=== PATIENT | male | born 1980 | race Caucasian/White ===

== ENCOUNTER 2017-10-09 08:43 | Emergency (ER) | payer BC ==
[2017-10-09 08:47] VITALS: BP 142/78
--- NOTE | 2017-10-09 10:20 | UC ---
Dental HPI - HPI Summary HPI Summary: Patient presents with a past medical history of night time grinding, and he was seen at the dentist a few days ago and had his dental guard and has had notice increased pain of the left TMJ, and clicking sounds. He states that the pain is worse in the morning and get better through the day. He states he has no dental pain, swelling of the gums, or pain with chewing. He denies any fever, chills, dysphagia associated with his symptoms. He went to [facility] yesterday for the same symptoms and wanted a second opinion. - History of Current Complaint Chief Complaint: UCGeneralIllness Stated Complaint: EAR/JAW PAIN Time Seen by Provider: 10/09/17 10:06 Hx Obtained From: Patient Onset/Duration: Gradual Onset, Lasting Days Severity: Mild Aggravating Factor(s): Other - wakes in am with worse pain, movment of jaw. - Allergies/Home Medications Allergies/Adverse Reactions: Allergies Allergy/AdvReac Type Severity Reaction Status Date / Time enviromental Allergy Eyes Uncoded 10/09/17 08:47 Itchy/Swollen/Red/Watery Home Medications: Home Medications Lisinopril TAB* [Prinivil TAB 10 MG*] 10 mg PO DAILY 10/09/17 [History Confirmed 10/09/17] Sertraline* [Zoloft*] 50 mg PO DAILY 10/09/17 [History Confirmed 10/09/17] PMH/Surg Hx/FS Hx/Imm Hx Previously Healthy: Yes Other History Of: Negative For: HIV, Hepatitis B, Hepatitis C - Surgical History Surgical History: Yes Surgery Procedure, Year, and Place: colonoscopy - polyp removal, abscess behind front teeth, teeth removed, implants in place - Family History Known Family History: Positive: Unknown - He is adopted. - Social History Occupation: Employed Full-time Lives: Alone Alcohol Use: Weekly Substance Use Type: None Smoking Status (MU): Never Smoked Tobacco - Immunization History Most Recent Influenza Vaccination: season Review of Systems Constitutional: Negative Skin: Negative Eyes: Negative ENT: Other - pain over left TMJ joint. Respiratory: Negative Cardiovascular: Negative Gastrointestinal: Negative Genitourinary: Negative Motor: Negative Neurovascular: Negative Musculoskeletal: Negative Neurological: Negative Psychological: Negative Is Patient Immunocompromised?: No All Other Systems Reviewed And Are Negative: Yes Physical Exam Triage Information Reviewed: Yes Appearance: Well-Appearing Vital Signs: Initial Vital Signs Pulse 75 10/09/17 08:44 Resp 18 10/09/17 08:44 BP 142/78 10/09/17 08:44 Pulse Ox 100 10/09/17 08:44 Vital Signs Reviewed: Yes Eye Exam: Normal ENT: Positive: Other - tenderness to palpation of the left TMJ, with clicking noted on flexion and extension of jaw. Dentician in good repair with no redness , swelling of gum, no pain on palpaiton of teeth. Dental Exam: Normal Neck exam: Normal Neck: Positive: 1 Respiratory Exam: Normal Cardiovascular Exam: Normal Skin Exam: Normal Dental Complaint Course/Dx - Course Course Of Treatment: Patient present with pain of the left TMJ, following adjustments of his road crossing guard two days ago. He has no clinical signs of dental abscess. He denies any chest pain, dyspnea, sweating, nausea, HTN, CAD, or know hyperlipidemia. I do not feel that his symtpoms are cardiac related. I did recommend that the take advil and see if his symptoms improve, if for any reason they do not, and he develops any other symptoms he was told to follow up at once. He verbalzied understanding of and was in agreement with the discharge plan. - Differential Dx/Diagnosis Differential Diagnosis/Dx: Other - TMJ syndrome Provider Diagnoses: TMJ syndrome Discharge - Discharge Plan Condition: Stable Disposition: HOME Patient Education Materials: Temporomandibular Disorder (ED) Referrals: Sharita Morales MD [Primary Care Provider] -
== END 2017-10-09 10:19 | disposition home or self-care (01) ==
LOC: UCEAST 08:43
DX: M26.602 Left temporomandibular joint disorder, unspecified (principal); Z91.048 Other nonmedicinal substance allergy status
CPT/HCPCS: 99211; G0463

== ENCOUNTER 2017-12-25 07:27 | Emergency (ER) | payer BC ==
--- OUTSIDE RECORDS SUMMARY | 2017-12-25 07:33 | XMS REPORT ---
:1980 External Reference #:[id number] Author Organization [facility] Address [address] [place] [id number] Phone [phone] Care Team Providers Name Role Phone Sharita Morales MD FACP Care Team Information Manager Spa Unavailable Sharita Morales MD FACP Primary Care Physician Unavailable Payers Type Date Identification Numbers Payment Provider Subscriber Commercial Effective: Policy Number: [employer] Melissa Guzman 2012 [id number] PayID: [id number] [place] [id number] Problems Date Description Provider Status Onset: 11/30/2017 Essential hypertension Sharita Morales MD Active Onset: 10/29/2016 Impaired fasting glycaemia Sharita Morales MD Active Onset: 09/30/2016 Panic disorder with agoraphobia Sharita Morales MD Active Onset: 09/30/2016 Generalized anxiety disorder Sharita Morales MD Active Onset: 09/23/2016 Obesity Sharita Morales MD Active Family History Date Family Member(s) Problem(s) Comments General Adopted Social History Type Date Description Comments Marital Status 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 [employer] Use Consumed 3 Alcoholic Beverages Per Week Smoking Patient has never smoked Daily Caffeine Does Not Consume Caffeine Exercise Type/Frequency Exercises sporadically Currently Active Patient is currently sexually active Allergies, Adverse Reactions, Alerts Date Description Reaction Status Severity Comments 09/18/2016 NKDA active Medications Medication Date Status Form Strength Qnty SIG Indications Ordering Provider Lisinopril Active Tablets 10mg 30tabs take 1 I10 Sheriff A 017 tablet by MD Carmen mouth daily for high blood pressure Sertraline Active Tablets 50mg take 1 F41.1 BABAR Ontiveros 016 tablet by Melissa mouth daily MD George for Anxiety F40.01 Amoxicillin Hx Capsules 500mg 30caps 1 by mouth J03.90 Sheriff A 8 - three times a MD Carmen day 8 Meloxicam Hx Tablets 15mg 14tabs 1 by mouth S93.412A Sheriff A 7 - every day MD Carmen 7 M76.62 Diazepam 11/17/2016 - Hx Tablets 2mg 1 tablet by F41.1 Melissa Ontiveros 02/14/2017 mouth 2 times MD George per day for anxiety F40.01 Bisoprolol 09/30/2016 - Hx Tablets 5mg 30tabs take 1 tablet R00.2 Sheriff A Fumarate 04/13/2017 by mouth daily MD Carmen for palpitation and anxiety prevention I10 F41.1 Diazepam 07/18/2016 - Hx Tablets 10mg 5 mg pill twice F41.1 Melissa Ontiveros 11/17/2016 per day (Am and MD George PM) F40.01 Zofran 10/18/2014 - 10/29/2016 Hx Tablets 4mg 1 per day Chin Abdalla MD Immunizations CPT Code Status Date Vaccine Lot # [id number] Given 07/20/2017 Influenza Vaccine Quadrivalent Preser/Antibiotic [id number] Free Im Use 42556 Given 10/29/2016 Tdap-Tetanus, Diphtheria Toxoids/Acellular [id number] Pertussis Vaccine 7+ Vital Signs Date Vital Result Comment 11/30/2017 Body Temperature 98.7 F O2 % BldC Oximetry 96 % Heart Rate 68 /min BMI (Body Mass Index) 39.0 kg/m2 Weight 253.00 lb Height 67.50 inches 5'7.50" 11/16/2017 Body Temperature 98.9 F Heart Rate 70 /min BP Systolic 120 mmHg BP Diastolic 80 mmHg 10/20/2017 Body Temperature 100.4 F 07/20/2017 Heart Rate 76 /min BP Systolic 140 mmHg BP Diastolic 90 mmHg Weight 245.00 lb 05/11/2017 Heart Rate 68 /min BP Systolic 140 mmHg BP Diastolic 90 mmHg Weight 250.00 lb 03/16/2017 Heart Rate 62 /min BP Systolic 118 mmHg BP Diastolic 76 mmHg Weight 251.00 lb 02/10/2017 Heart Rate 76 /min BP Systolic 145 mmHg BP Diastolic 85 mmHg Weight 244.00 lb 10/29/2016 Heart Rate 82 /min BP Systolic 130 mmHg BP Diastolic 80 mmHg BMI (Body Mass Index) 36.6 kg/m2 Weight 234.00 lb Height 67 inches 5'7" 09/30/2016 Heart Rate 67 /min BP Systolic 130 mmHg BP Diastolic 80 mmHg 09/23/2016 O2 % BldC Oximetry 97 % Heart Rate 73 /min BP Systolic 140 mmHg Bilateral Ue BP Diastolic 80 mmHg Bilateral Ue BMI (Body Mass Index) 37.0 kg/m2 Weight 236.00 lb Height 67 inches 5'7" Results Test Date Test Result H/L Range Note CBC No Diff 11/27/2017 White Blood Count 7.0 10^3/uL 3.5-10.8 Red Blood Count 5.43 10^6/uL High 4.0-5.4 Hemoglobin 15.9 g/dL 14.0-18.0 Hematocrit 48 % 42-52 Mean Corpuscular Volume 88 fL 80-94 Mean Corpuscular Hemoglobin 29 pg 27-31 Mean Corpuscular HGB Conc 33 g/dL 31-36 Red Cell Distribution Width 14 % 10.5-15 Platelet Count 240 10^3/uL 150-450 Mean Platelet Volume 8 um3 7.4-10.4 Basic Metabolic Panel 11/27/2017 Sodium 137 mmol/L 133-145 Potassium 4.9 mmol/L 3.5-5.0 Chloride 103 mmol/L 101-111 Co2 Carbon Dioxide 29 mmol/L 22-32 Anion Gap 5 mmol/L 2-11 Glucose 103 mg/dL High 70-100 Blood Urea Nitrogen 28 mg/dL High 6-24 Creatinine 1.01 mg/dL 0.67-1.17 BUN/Creatinine Ratio 27.7 High 8-20 Calcium 10.0 mg/dL 8.6-10.3 Egfr Non- 82.2 >60 Egfr 105.8 >60 1 Laboratory test finding 11/27/2017 Hemoglobin A1c (Glyco HGB) 5.8 % High 4.0-5.6 2 Lipid Profile 11/27/2017 Triglycerides 94 mg/dL <150 3 (Trig/Chol/HDL) Cholesterol 153 mg/dL <200 4 HDL Cholesterol 51.6 mg/dL >40 5 LDL Cholesterol 83 mg/dL <130 6 Urinalysis Profile 11/27/2017 Urine Color Yellow Urine Appearance Turbid Urine Specific [place] 1.026 1.010-1.030 Urine pH 5.0 5-9 Urine Urobilinogen Negative Negative Urine Ketones Negative Negative Urine Protein Negative Negative Urine Leukocytes Negative Negative Urine Blood Negative Negative * * Negative 7 Urine Nitrite Negative Negative Urine Bilirubin Negative Negative Urine Glucose Negative Negative Laboratory test finding 02/22/2017 Glucose 98 mg/dL 70-100 Hemoglobin A1c (Glyco HGB) 5.4 % Less than 6.0 8 Basic Metabolic Panel 10/24/2016 Sodium 138 mmol/L 133-145 Potassium 4.3 mmol/L 3.5-5.0 Chloride 102 mmol/L 101-111 Co2 Carbon Dioxide 28 mmol/L 22-32 Anion Gap 8 mmol/L 2-11 Glucose 96 mg/dL 70-100 Blood Urea Nitrogen 23 mg/dL 6-24 Creatinine 1.06 mg/dL 0.67-1.17 BUN/Creatinine Ratio 21.7 High 8-20 Calcium 9.5 mg/dL 8.6-10.3 Egfr Non- 78.2 >60 Egfr 100.6 >60 9 Laboratory test finding 10/24/2016 Hemoglobin A1c (Glyco 6.2 % High Less than 6.0 10 HGB) Insulin Level 16.1 mcIU/mL 2.6 - 24.9 11 Lipid Profile (Trig/Chol/HDL) 10/24/2016 Triglycerides 103 mg/dL <150 12 Cholesterol 145 mg/dL <200 13 HDL Cholesterol 41.3 mg/dL >40 14 LDL Cholesterol 83 mg/dL <130 15 Basic Metabolic Panel 10/24/2016 Sodium 138 mmol/L 133-145 Potassium 4.3 mmol/L 3.5-5.0 Chloride 102 mmol/L 101-111 Co2 Carbon Dioxide 28 mmol/L 22-32 Anion Gap 8 mmol/L 2-11 Glucose 96 mg/dL 70-100 Blood Urea Nitrogen 23 mg/dL 6-24 Creatinine 1.06 mg/dL 0.67-1.17 BUN/Creatinine Ratio 21.7 High 8-20 Calcium 9.5 mg/dL 8.6-10.3 Egfr Non- 78.2 >60 Egfr 100.6 >60 16 Lipid Profile (Trig/Chol/HDL) 10/24/2016 Triglycerides 103 mg/dL 17 Cholesterol 145 mg/dL 18 HDL Cholesterol 41.3 mg/dL 19 LDL Cholesterol 83 mg/dL 20 Laboratory test finding 10/24/2016 Hemoglobin A1c (Glyco 6.2 % High Less than 6.0 21 HGB) Insulin Level 16.1 mcIU/mL 2.6 - 24.9 22 Order 10/02/2016 24 Hour Holter Monitor Benign Order 09/30/2016 EKG Normal 1 Because ethnic data is not always readily available, this report includes an eGFR for both -Americans and non- Americans. The National Kidney Disease Education Program (NKDEP) does not endorse the use of the MDRD equation for patients that are not between the ages of 18 and 70, are , have extremes of body size, muscle mass, or nutritional status, or are non- or non-. According to the National Kidney Foundation, irrespective of diagnosis, the stage of the disease is based on the level of kidney function: Stage Description GFR(mL/min/1.73 m(2)) 1 Kidney damage with normal or decreased GFR 90 2 Kidney damage with mild decrease in GFR 60-89 3 Moderate decrease in GFR 30-59 4 Severe decrease in GFR 15-29 5 Kidney failure <15 (or dialysis) 2 Therapeutic target for the treatment of diabetes mellitus patients is <7% HBA1C, and in selective patients <6.0%. Please refer to [place] Diabetes Association diabetic care guidelines for further information. 3 Desirable: <150 Borderline High: 150-199 High: 200-499 Very High: >500 4 Desirable: <200 Borderline High: 200-239 High: >239 5 Low: <40 Desirable: 40-60 High: >60 6 Desirable: <100 Near Optimal: 100-129 Borderline High: 130-159 High: 160-189 Very High: >189 7 *Ascorbic acid is present which may interfere with detection of blood. 8 Therapeutic target for the treatment of diabetes Mellitus patients is <7% HBA1C, and in selective patients <6.0%.Please refer to [employer] Diabetic care guidelines for further information. 9 Because ethnic data is not always readily available, this report includes an eGFR for both -Americans and non- Americans. The National Kidney Disease Education Program (NKDEP) does not endorse the use of the MDRD equation for patients that are not between the ages of 18 and 70, are , have extremes of body size, muscle mass, or nutritional status, or are non- or non-. According to the National Kidney Foundation, irrespective of diagnosis, the stage of the disease is based on the level of kidney function: Stage Description GFR(mL/min/1.73 m(2)) 1 Kidney damage with normal or decreased GFR 90 2 Kidney damage with mild decrease in GFR 60-89 3 Moderate decrease in GFR 30-59 4 Severe decrease in GFR 15-29 5 Kidney failure <15 (or dialysis) 10 Therapeutic target for the treatment of diabetes Mellitus patients is <7% HBA1C, and in selective patients <6.0%.Please refer to [place] [employer] Diabetic care guidelines for further information. 11 Test Performed by: [place] [address] Plastic Top Assembler: Lonnie Kelley II, M.D., Ph.D. 12 Desirable <150 Borderline high 150-199 High 200-499 Very High >500 13 Desirable <200 Borderline high 200-239 High >239 14 Low <40 Desirable: 40-60 High: >60 15 Desirable: <100 mg/dL Near Optimal: 100-129 mg/dL Borderline High: 130-159 mg/dL High: 160-189 mg/dL Very High: >189 mg/dL 16 Because ethnic data is not always readily available, this report includes an eGFR for both -Americans and non- Americans. The National Kidney Disease Education Program (NKDEP) does not endorse the use of the MDRD equation for patients that are not between the ages of 18 and 70, are , have extremes of body size, muscle mass, or nutritional status, or are non- or non-. According to the National Kidney Foundation, irrespective of diagnosis, the stage of the disease is based on the level of kidney function: Stage Description GFR(mL/min/1.73 m(2)) 1 Kidney damage with normal or decreased GFR 90 2 Kidney damage with mild decrease in GFR 60-89 3 Moderate decrease in GFR 30-59 4 Severe decrease in GFR 15-29 5 Kidney failure <15 (or dialysis) 17 Desirable <150 Borderline high 150-199 High 200-499 Very High >500 18 Desirable <200 Borderline high 200-239 High >239 19 Low <40 Desirable: 40-60 High: >60 20 Desirable: <100 mg/dL Near Optimal: 100-129 mg/dL Borderline High: 130-159 mg/dL High: 160-189 mg/dL Very High: >189 mg/dL 21 Therapeutic target for the treatment of diabetes Mellitus patients is <7% HBA1C, and in selective patients <6.0%.Please refer to [place] [employer] Diabetic care guidelines for further information. 22 Test Performed by: [place] [address] Plastic Top Assembler: Lonnie Kelley II, M.D., Ph.D. Procedures Date CPT Code Description Status 10/05/2016 51400 ECG Monitor/Report W/O Superimposition Scanning Completed 10/02/2016 42126 ECG Monitor/Report W/O Superimposition Scanning Completed 09/30/2016 29893 Electrocardiogram Complete Completed Encounters Type Date Location Provider CPT E/M Dx Office Visit 11/30/2017 11:20a [place] [address] Z00.01 R73.01 E66.09 I10 Office Visit 11/16/2017 12:40p [place] [address] B34.9 Office Visit 10/28/2017 2:40p [place] [address] B30.9 J03.90 Office Visit 10/20/2017 12:40p [place] [address] J03.90 Office Visit 07/20/2017 11:00a [place] [address] I10 E66.09 Z23 Office Visit 05/11/2017 11:40a [place] [address] I10 E66.09 Office Visit 03/16/2017 10:00a [place] [address] I10 R73.01 E66.09 Office Visit 02/10/2017 10:40a [place] [address] R73.01 I10 E66.09 Office Visit 12/01/2016 10:00a [place] [address] S93.412A M76.62 Office Visit 10/29/2016 10:40a [place] [address] Z00.01 R73.01 Z23 Office Visit 09/30/2016 1:20p [place] [address] R00.2 G47.33 R42 F41.1 F40.01 Office Visit 09/23/2016 2:20p [place] [address] I10 R73.9 R06.83 E66.09 Plan of Care 11/30/2017 - Sharita Morales MDZ00.01 Encounter for general adult medical exam w abnormal findingsComments:Age, sex and risk appropriate preventive care recommendations discussed with patient. Physical findings discussed in detail.Patient verbalized understanding. Lifestyle and dietary modifications advised for weight loss.R73.01 Impaired fasting eogfareD38.09 Other obesity due to excess [id number] Essential (primary) hypertensionComments:Clinically stable and asymptomatic. Medications related potential side effects, general precautions, follow up recommendations discussed with patient in detail. Patient verbalized understanding.AllFollow up:6M for HTN and IFG with labs.
[2017-12-25 08:26] VITALS: BP 136/81
--- NOTE | 2017-12-25 08:46 | UC ---
HPI BURN - HPI Summary HPI Summary: This 67-year-old man comes to the urgent care today with 2 days of nasal congestion low-grade fevers around 99 wants to be sure he doesn't need any further treatment seeking advice on how to manage symptoms they don't get worse while flying this week - History of Current Complaint Chief Complaint: UCRespiratory Stated Complaint: COUGH, HEADACHE Time Seen by Provider: 12/25/17 08:45 Hx Obtained From: Patient Hx From Patient Unobtainable Due To: Dementia Occurred: Days Ago - 2 Onset Severity: Mild Current Severity: Mild Pain Intensity: 3 Pain Scale Used: 0-10 Numeric - and Location: Other - Nasal congestion Aggravating Factor(s): Nothing Alleviating Factor(s): Nothing Associated Signs & Symptoms: Positive: Negative Occupational Injury: No - Allergy/Home Medications Allergies/Adverse Reactions: Allergies Allergy/AdvReac Type Severity Reaction Status Date / Time enviromental Allergy Eyes Uncoded 12/25/17 08:18 Itchy/Swollen/Red/Watery PMH/Surg Hx/FS Hx/Imm Hx Previously Healthy: No Cardiovascular History: Hypertension Psychological History: Depression Other History Of: Negative For: HIV, Hepatitis B, Hepatitis C - Surgical History Surgical History: Yes Surgery Procedure, Year, and Place: colonoscopy - polyp removal, abscess behind front teeth, teeth removed, implants in place - Family History Known Family History: Positive: Unknown - He is adopted. - Social History Occupation: Employed Full-time Lives: With Family Alcohol Use: Weekly Substance Use Type: None Smoking Status (MU): Never Smoked Tobacco - Immunization History Most Recent Influenza Vaccination: season Review of Systems Constitutional: Fever Skin: Negative Eyes: Negative ENT: Nasal Discharge Respiratory: Negative Cardiovascular: Negative Gastrointestinal: Negative Genitourinary: Negative Motor: Negative Neurovascular: Negative Musculoskeletal: Negative Neurological: Negative Psychological: Negative Is Patient Immunocompromised?: No All Other Systems Reviewed And Are Negative: Yes Physical Exam Triage Information Reviewed: Yes Appearance: Well-Appearing, No Pain Distress, Well-Nourished Vital Signs: Initial Vital Signs Temp 97.3 F 12/25/17 08:19 Pulse 70 12/25/17 08:19 Resp 16 12/25/17 08:19 BP 136/81 12/25/17 08:19 Pulse Ox 99 12/25/17 08:19 Vital Signs Reviewed: Yes Eye Exam: Normal ENT Exam: Other ENT: Positive: Nasal congestion, Nasal drainage Dental Exam: Normal Neck exam: Normal Neck: Positive: Supple, Nontender - The Respiratory Exam: Normal Respiratory: Positive: Chest non-tender, Lungs clear, Normal breath sounds, No respiratory distress, No accessory muscle use Cardiovascular Exam: Normal Cardiovascular: Positive: RRR, No Murmur, Pulses Normal, Brisk Capillary Refill Musculoskeletal Exam: Normal Musculoskeletal: Positive: Strength Intact, ROM Intact, No Edema Neurological Exam: Normal Neurological: Positive: Alert, Muscle Tone Normal Psychological Exam: Normal Skin Exam: Normal Burn Calculation - Nicolaus Formula for Fluid Resuscitation Weight: 113.398 kg 24 -Hour Fluid Replacement: 0.0 Course/Dx Burn - Course Course Of Treatment: Patient can use Sudafed for his nasal spray increase fluids Tylenol ibuprofen and follow with primary care when necessary - Diagnoses Clinic Provider Diagnoses: Acute rhinosinusitis Discharge - Discharge Plan Condition: Stable Disposition: HOME Patient Education Materials: Pseudoephedrine (By mouth), Fluticasone (Into the nose), Rhinosinusitis (ED) Referrals: Sharita Morales MD [Primary Care Provider] - If Needed
== END 2017-12-25 09:06 | disposition home or self-care (01) ==
LOC: UCEAST 07:27
DX: J01.90 Acute sinusitis, unspecified (principal); F32.9 Major depressive disorder, single episode, unspecified; I10 Essential (primary) hypertension; R50.9 Fever, unspecified
CPT/HCPCS: 87502; 99211; G0463

== ENCOUNTER 2019-05-19 07:15 | Emergency (ER) | payer BC ==
[2019-05-19 07:29] VITALS: BP 135/92
[2019-05-19] MEDS ORDERED: predniSONE TAB* 20 MG PO ONE (07:43)
[2019-05-19] MEDS ORDERED: LoraTADine TAB(NF) 10 MG TAB (AUTOSUB to CETIRIZINE) PO ONE (07:43)
--- NOTE | 2019-05-19 07:57 | UC ---
Skin Complaint HPI - HPI Summary HPI Summary: ONSET OF ITCHY RASH OVER THIGH, ARMS AND ABDOMEN YESTERDAY AFTER RECEIVING ACUPUNCTURE TREATMENT. RASH IS IN SAME DISTRIBUTION NEEDLE PLACEMENT. STATES HE HAS RECEIVED ACUPUNCTURE NUMEROUS TIMES IN THE PAST WITHOUT INCIDENT. NO RESPIRATORY INVOLVEMENT OR TONGUE/LIP SWELLING. NO NEW MEDS OR OTHER EXPOSURES. - History of Current Complaint Chief Complaint: UCRash Time Seen by Provider: 05/19/19 07:25 Stated Complaint: RASH Hx Obtained From: Patient Onset/Duration: Sudden Onset, Lasting Hours, Still Present Timing: Constant Onset Severity: Moderate Current Severity: Moderate Pain Intensity: 0 Pain Scale Used: 0-10 Numeric Character: Pruritus, Hives, Redness Aggravating Factor(s): Touch Alleviating Factor(s): Nothing Associated Signs & Symptoms: Positive: Rash - Allergy/Home Medications Allergies/Adverse Reactions: Allergies Allergy/AdvReac Type Severity Reaction Status Date / Time enviromental Allergy Eyes Uncoded 05/19/19 07:24 Itchy/Swollen/Red/Watery Home Medications: Home Medications Losartan TAB* [Cozaar TAB*] 25 mg PO DAILY 05/19/19 [History Confirmed 05/19/19] diPHENhydraMINE PO* [Benadryl PO 25 MG TAB*] 25 mg PO ONCE 05/19/19 [History Confirmed 05/19/19] PMH/Surg Hx/FS Hx/Imm Hx Cardiovascular History: Hypertension Other History Of: Negative For: HIV, Hepatitis B, Hepatitis C - Surgical History Surgical History: Yes Surgery Procedure, Year, and Place: colonoscopy - polyp removal, abscess behind front teeth, teeth removed, implants in place - Family History Known Family History: Positive: Unknown - He is adopted. - Social History Alcohol Use: None Substance Use Type: None Smoking Status (MU): Never Smoked Tobacco - Immunization History Most Recent Influenza Vaccination: season Review of Systems All Other Systems Reviewed And Are Negative: Yes Constitutional: Positive: Negative Skin: Positive: Rash Respiratory: Positive: Negative Cardiovascular: Positive: Negative Gastrointestinal: Positive: Negative Physical Exam Triage Information Reviewed: Yes Appearance: Well-Appearing, No Pain Distress, Well-Nourished Vital Signs: Initial Vital Signs Temp 97.3 F 05/19/19 07:24 Pulse 65 05/19/19 07:24 Resp 18 05/19/19 07:24 BP 135/92 05/19/19 07:24 Pulse Ox 98 05/19/19 07:24 Vital Signs Reviewed: Yes Eyes: Positive: Conjunctiva Clear ENT: Positive: Hearing grossly normal Neck: Positive: Supple Respiratory: Positive: No respiratory distress, No accessory muscle use Cardiovascular: Positive: Pulses Normal Abdomen Description: Positive: Soft Musculoskeletal: Positive: No Edema Neurological: Positive: Alert Psychological: Positive: Age Appropriate Behavior Skin: Positive: Rashes - SCATTERED ERYTHEMATOUS MACULAR RASH OVER UPPER THIGHS, ABDOMEN AND UPPER EXTREMITIES. NON TENDER. NO DRAINAGE OR VESICLES/BLISTERS Course/Dx - Course Course Of Treatment: RASH IS CONSISTENT WITH ALLERGIC RESPONSE. MAY OR MAY NOT BE DUE TO ACUPUNCTURE. WILL COVER WITH PREDNISONE AND TOPICAL TRIAMCINOLONE. ALSO ADVISED ANTIHISTAMINES. FOLLOW-UP IF NOT IMPROVING EXPECTED. - Diagnoses Provider Diagnosis: Allergic dermatitis Discharge - Sign-Out/Discharge Documenting (check all that apply): Patient Departure All imaging exams completed and their final reports reviewed: No Studies - Discharge Plan Condition: Stable Disposition: HOME Prescriptions: predniSONE TAB* [Deltasone TAB*] 50 mg PO DAILY #5 tab Triamcinolone 0.1% CREAM(NF) [Kenalog Cream 0.1%(NF)] 1 applic TOPICAL TID PRN # 1 tube PRN Reason: Itching Patient Education Materials: General Allergic Reaction (ED), Dermatitis (ED) Referrals: Sharita Morales MD [Primary Care Provider] - If Needed Additional Instructions: USE DAILY HYPOALLERGENIC MOISTURIZING LOTION TAKE PREDNISONE DAILY PRESCRIBED AVOID HEAT AND HOT WATER TAKE OTC ANTIHISTAMINE DAILY (CLARITIN (LORATADINE), ZYRTEC (CETIRIZINE) OR REED (FEXOFENADINE) IN THE MORNING, 25-50MG BENADRYL AT NIGHT) DO NOT SCRATCH KEEP COOL, CLEAN AND DRY USE TOPICAL STEROID SPARINGLY 2-3 TIMES DAILY ON ITCHY SPOTS. KEEP AWAY FROM MUCOUS MEMBRANES. GO TO THE ED WITHOUT FAIL IF YOU DEVELOP ANY RESPIRATORY INVOLVEMENT, TONGUE/ LIP SWELLING, FEVER, NAUSEA/VOMITING OR ANY OTHER CONCERNING SYMPTOMS. YOUR RASH MAY OR MAY NOT BE DUE TO THE ACUPUNCTURE THERAPY. IF YOU HAVE RECURRENT SYMPTOMS CONSIDER EVAL BY AN MAXILLOFACIAL PROSTHETICS DENTIST. [facility] Address: [facility] [address], [place] [address] [facility] [address] [place] [address] [address] [place], [place] [address] - Billing Disposition and Condition Condition: STABLE Disposition: Home
== END 2019-05-19 07:58 | disposition home or self-care (01) ==
LOC: UCEAST 07:15
DX: L23.9 Allergic contact dermatitis, unspecified cause (principal); I10 Essential (primary) hypertension
CPT/HCPCS: 99212; A9270-GY; G0463; J7512

== ENCOUNTER 2019-05-20 07:32 | Emergency (ER) | payer BC ==
[2019-05-20 07:42] VITALS: BP 104/68
--- NOTE | 2019-05-20 07:52 | UC ---
Skin Complaint HPI - HPI Summary HPI Summary: Seen here for hives yesterday returns because hives are worse didn't sleep due to itching took one 25 mg benadryl at bedtime no oral lesions no throat tightness no wheezing or SOB no new meds - History of Current Complaint Chief Complaint: UCRash Time Seen by Provider: 05/20/19 07:44 Stated Complaint: RECHECK OF HIVES Hx Obtained From: Patient Onset/Duration: Sudden Onset, Lasting Hours Timing: Constant Onset Severity: Mild Current Severity: Moderate Pain Intensity: 3 Pain Scale Used: 0-10 Numeric Location: Generalized - trunk and ext (abd and inner thighs the worse) Aggravating Factor(s): Nothing Alleviating Factor(s): Nothing Associated Signs & Symptoms: Positive: Rash. Negative: Nausea, Vomiting, Numbness, Thirst, Diaphoresis, Weakness, Pallor, Shivering, Difficulty Breathing , Fever, Chills, Cough, Wheezing, Chest Pain, Hoarseness, Throat Tightening, Abdominal Pain, Lightheadedness, Syncope, Drainage, Bruising, Tenderness, Red Streaks, Joint Swelling - Allergy/Home Medications Allergies/Adverse Reactions: Allergies Allergy/AdvReac Type Severity Reaction Status Date / Time enviromental Allergy Eyes Uncoded 05/20/19 07:42 Itchy/Swollen/Red/Watery PMH/Surg Hx/FS Hx/Imm Hx Previously Healthy: Yes Other History Of: Negative For: HIV, Hepatitis B, Hepatitis C - Surgical History Surgical History: Yes Surgery Procedure, Year, and Place: colonoscopy - polyp removal, abscess behind front teeth, teeth removed, implants in place - Family History Known Family History: Positive: Unknown - He is adopted. - Social History Alcohol Use: None Substance Use Type: None Smoking Status (MU): Never Smoked Tobacco - Immunization History Most Recent Influenza Vaccination: season Review of Systems All Other Systems Reviewed And Are Negative: Yes Constitutional: Positive: Negative Skin: Positive: Rash Eyes: Positive: Negative, Diplopia Respiratory: Positive: Negative Cardiovascular: Positive: Negative Gastrointestinal: Positive: Negative Genitourinary: Positive: Negative Motor: Positive: Negative Neurovascular: Positive: Negative Musculoskeletal: Positive: Negative Neurological: Positive: Negative Psychological: Positive: Negative Physical Exam Triage Information Reviewed: Yes Appearance: Well-Appearing, No Pain Distress, Well-Nourished Vital Signs: Initial Vital Signs Temp 98 F 05/20/19 07:37 Pulse 79 05/20/19 07:37 Resp 12 05/20/19 07:37 BP 104/68 05/20/19 07:37 Pulse Ox 98 05/20/19 07:37 Vital Signs Reviewed: Yes Eyes: Positive: Conjunctiva Clear ENT: Positive: Hearing grossly normal, Pharynx normal, Other - no stridor. Negative: Nasal congestion, Nasal drainage, Trismus, Muffled voice, Hoarse voice Neck: Positive: Supple, Nontender, No Lymphadenopathy Respiratory: Positive: Lungs clear, Normal breath sounds, No respiratory distress Cardiovascular: Positive: RRR, No Murmur Musculoskeletal: Positive: Strength Intact, ROM Intact, No Edema Neurological: Positive: Alert Skin Exam: Other - no angioedema, no target lesions, + dermatographia, + hives Course/Dx - Diagnoses Provider Diagnosis: Urticaria Discharge - Sign-Out/Discharge Documenting (check all that apply): Patient Departure All imaging exams completed and their final reports reviewed: No Studies - Discharge Plan Condition: Stable Disposition: HOME Prescriptions: hydrOXYzine HCL TAB* [Atarax TAB*] 25 - 50 mg PO QID PRN #20 tab PRN Reason: Itching Patient Education Materials: Urticaria (ED) Referrals: Sharita Morales MD [Primary Care Provider] - 2 Days (if not markedly improved) Additional Instructions: I will be here until 2:[address] Mathur will be here until 10PM call for questions or concerns [phone] - Billing Disposition and Condition Condition: STABLE Disposition: Home
[2019-05-20] MEDS ORDERED: hydrOXYzine HCL TAB* 25 MG PO ONE (08:08)
== END 2019-05-20 08:26 | disposition home or self-care (01) ==
LOC: UCEAST 07:32
DX: L50.9 Urticaria, unspecified (principal)
CPT/HCPCS: 81002; 99212; A9270-GY; G0463